=== PATIENT | female | born 1975 | race African-American/Black ===

== ENCOUNTER 2017-12-30 14:30 | Outpatient (RCR) | payer MEDICARE, MEDICAID | END 2018-01-22 | disposition home or self-care (01) | LOC: PTY 14:30 | DX: M62.81 Muscle weakness (generalized) (principal); M25.30 Other instability, unspecified joint; I25.2 Old myocardial infarction; Z91.81 History of falling | CPT/HCPCS: 97110; 97162; G8978; G8979 ==

== ENCOUNTER 2018-02-08 08:20 | Outpatient (RCR) | payer MEDICARE, MEDICAID | END 2018-02-22 | disposition home or self-care (01) | LOC: PTY 08:20 | DX: M62.81 Muscle weakness (generalized) (principal); M25.30 Other instability, unspecified joint; I25.2 Old myocardial infarction; Z91.81 History of falling | CPT/HCPCS: 97110; 97140; G8978; G8979 ==

== ENCOUNTER 2018-02-24 07:58 | Outpatient (RCR) | payer MEDICARE, MEDICAID | END 2018-03-25 | disposition home or self-care (01) | LOC: PTY 07:58 | DX: M62.81 Muscle weakness (generalized) (principal); M25.30 Other instability, unspecified joint; I25.2 Old myocardial infarction; Z91.81 History of falling; J45.909 Unspecified asthma, uncomplicated ==

== ENCOUNTER 2018-03-31 07:00 | Outpatient (RCR) | payer MEDICARE, MEDICAID | END 2018-04-24 | disposition home or self-care (01) | LOC: PTY 07:00 | DX: M62.81 Muscle weakness (generalized) (principal); M25.30 Other instability, unspecified joint; I25.2 Old myocardial infarction; Z91.81 History of falling; J45.909 Unspecified asthma, uncomplicated | CPT/HCPCS: 97110; G8978; G8979 ==

== ENCOUNTER 2018-04-26 07:38 | Outpatient (RCR) | payer MEDICARE, MEDICAID | END 2018-05-25 | disposition home or self-care (01) | LOC: PTY 07:38 | DX: M62.81 Muscle weakness (generalized) (principal); M25.30 Other instability, unspecified joint; I25.2 Old myocardial infarction; Z91.81 History of falling; J45.909 Unspecified asthma, uncomplicated ==

== ENCOUNTER 2018-06-15 10:39 | Emergency (ER) | payer MEDICARE, MEDICAID ==
[~2018-06-15] VITALS: Ht 157.5 cm; Wt 113.4 kg
[2018-06-15] MEDS ORDERED: UNOBMED (10:43)
--- NOTE | 2018-06-15 13:08 | Emergency Room Report ---
History of Present Illness General Chief Complaint: Chest Pain Source: Patient Present Illness HPI Patient presents with complaints of right upper chest pain Patient had a fairly extensive and complicated medical history with multiple recent physicians at the scene including neurology And heme oncology patient reports that she was also in the process of getting MRI and other testing recently When she felt somewhat claustrophobic had taken Ambien And was unable to finish her examinations Patient also reports taking a new medication for the past 7 days for her headaches Which she feels could have potentially contributing to her pain Denies any vomiting or diarrhea denies any focal weakness Pain at this time is improved Allergies: Coded Allergies: LATEX (Verified Allergy, Unknown, Hives, 01/27/18) PENICILLINS (Verified Allergy, Unknown, 01/27/18) Patient History Past Medical History: see triage record Pertinent Family History: none Last Menstrual Period: 05/30/18 Reviewed Nursing Documentation: PMH: Agreed; PSxH: Agreed Nursing Documentation-PM Past Medical History: No History, Except For Hx Cardiac Problems: No - chronic pain, MS Review of Systems All Other Systems: negative except mentioned in HPI Physical Exam Vital Signs Date Time Temp Pulse Resp B/P (MAP) Pulse Ox O2 Delivery O2 Flow Rate FiO2 06/15/18 10:40 97.9 81 18 135/89 97 Room Air Sp02 EP Interpretation: reviewed, normal General Appearance: well appearing, no apparent distress Head: normocephalic, atraumatic Eyes: bilateral eye PERRL, bilateral eye EOMI ENT: hearing grossly normal, normal pharynx, TMs + canals normal, uvula midline Neck: full range of motion, supple, no meningismus, no bony tend Respiratory: lungs clear, normal breath sounds, no rhonchi, no respiratory distress, no retraction, no accessory muscle use Cardiovascular #1: normal peripheral pulses, regular rate, rhythm, no edema, no gallop, no JVD, no murmur Gastrointestinal: normal bowel sounds, non tender, soft, no mass, no organomegaly, non-distended, no guarding, no hernia, no pulsatile mass, no rebound Genitourinary: no CVA tenderness Musculoskeletal: normal inspection Neurologic: oriented x3, responsive, 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, motor strength/ tone normal, sensory intact Psychiatric: mood/affect normal Skin: normal color, no rash, warm/dry, palpation normal Lymphatic: normal inspection, no adenopathy Medical Decision Making Diagnostic Impression: Primary Impression: Chest pain ER Course Patient is a fairly complex patient with multiple differential to consideration including but not limited to cardiac cardiopulmonary and vascular emergencies patient Remains hemodynamic stable as a benign medical and neurological exam EKG does not show any acute pathology Patient reports significant history when she was younger with regards to cardiac pathology also has extensive recent follow-up with neurology and other specialty physicians Given the evaluation at this time patient is appropriate and stable for close follow-up EKG Diagnostic Results Rate: normal Rhythm: NSR ST Segments: no acute changes Rhythm Strip Diag. Results EP Interpretation: yes Rate: 77 Rhythm: NSR, no PVC's, no ectopy Last Vital Signs Date Time Temp Pulse Resp B/P (MAP) Pulse Ox O2 Delivery O2 Flow Rate FiO2 06/15/18 10:44 81 18 Room Air 06/15/18 10:40 97.9 135/89 97 Status: improved Disposition: HOME, SELF-CARE Condition: Stable Referrals: NOT CHOSEN IPA/MD,REFERRING (PCP) Patient Instructions: Nonspecific Chest Pain Additional Instructions: Patient is provided with the discharge instructions notified to follow up with primary doctor in the next 2-3 days otherwise return to the er with any worsening symptoms. Please note that this report is being documented using [employer] technology. This can lead to erroneous entry secondary to incorrect interpretation by the dictating instrument. Nuha Mcpherson DO Jun 15, 2018 13:08
[2018-06-15 15:52] VITALS: BP 135/89
[2018-06-15 15:53] VITALS: BP 135/89
== END 2018-06-15 11:40 | disposition home or self-care (01) ==
LOC: EMR 11:15
DX: R07.89 Other chest pain (principal); G89.29 Other chronic pain; G35 Multiple sclerosis; Z88.0 Allergy status to penicillin; Z91.040 Latex allergy status
CPT/HCPCS: 99282